=== PATIENT | female | born 1965 | race American Indian/Alaskan Native ===

== ENCOUNTER 2020-06-13 15:43 | Emergency (ER) | payer SELFPAY ==
[2020-06-13 16:11] VITALS: BP 134/98
--- NOTE | 2020-06-13 16:16 | Emergency Department Report ---
ED Lower Extremity HPI - General Chief Complaint: Extremity Problem,Nontraumatic Stated Complaint: LEFT KNEE PAIN AND SWOLLEN Time Seen by Provider: 06/13/20 16:11 Source: patient Mode of arrival: Ambulatory Limitations: No Limitations - History of Present Illness Initial Comments: This is a 54-year-old female nontoxic, well nourished in appearance, no acute signs of distress presents to the ED with c/o of left knee pain. Patient denies any known trauma or injuries. Denies decreased ROM, joint swelling, redness, or abnormal gait. Denies any fever, chills, nausea, vomiting, headache, stiff neck, chest pain or shortness of breath. Patient denies any numbness or tingling. Denies any allergies. MD Complaint: knee injury Injury: Knee: Left Severity: mild Severity scale (0 -10): 8 Improves With: immobilization Worsens With: weight bearing, movement, palpation Associated Symptoms: able to partially bear weight. denies: snap/pop sensation, swelling, numbness, tingling, unable to bear weight - Related Data Previous Rx's Medication Instructions Recorded Last Taken Type Albuterol Sulfate [Ventolin HFA] 2 puff IH Q4H PRN #1 hfa.aer.ad 01/06/15 Unknown Rx Naproxen [Naprosyn] 250 mg PO BID PRN #10 tablet 02/06/15 Unknown Rx Naproxen 500 mg PO Q12H PRN #12 tablet 06/13/20 Unknown Rx Allergies Allergy/AdvReac Type Severity Reaction Status Date / Time No Known Allergies Allergy Verified 01/06/15 06:44 ED Review of Systems ROS: Stated complaint: LEFT KNEE PAIN AND SWOLLEN Other details as noted in HPI Constitutional: denies: chills, fever Eyes: denies: eye pain, eye discharge, vision change ENT: denies: ear pain, throat pain Respiratory: denies: cough, shortness of breath, wheezing Cardiovascular: denies: chest pain, palpitations Endocrine: no symptoms reported Gastrointestinal: denies: abdominal pain, nausea, diarrhea Genitourinary: denies: urgency, dysuria, discharge Musculoskeletal: denies: back pain, joint swelling, arthralgia Skin: denies: rash, lesions Neurological: denies: headache, weakness, paresthesias Psychiatric: denies: anxiety, depression Hematological/Lymphatic: denies: easy bleeding, easy bruising ED Past Medical Hx - Past Medical History Previous Medical History?: Yes Hx Asthma: Yes - Surgical History Past Surgical History?: Yes Additional Surgical History: TUBAL LIGATION - Social History Smoking Status: Never Smoker - Medications Home Medications: Home Medications Medication Instructions Recorded Confirmed Last Taken Type Albuterol Sulfate [Ventolin HFA] 2 puff IH Q4H PRN #1 hfa.aer.ad 01/06/15 Unknown Rx Naproxen [Naprosyn] 250 mg PO BID PRN #10 tablet 02/06/15 Unknown Rx Naproxen 500 mg PO Q12H PRN #12 tablet 06/13/20 Unknown Rx ED Physical Exam - General Limitations: No Limitations General appearance: alert, in no apparent distress - Head Head exam: Present: atraumatic, normocephalic - Eye Eye exam: Present: normal appearance - Neck Neck exam: Present: normal inspection, full ROM. Absent: tenderness, meningismus, lymphadenopathy - Respiratory Respiratory exam: Absent: respiratory distress - Extremities Exam Extremities exam: Present: normal inspection, full ROM, tenderness, normal capillary refill. Absent: joint swelling, calf tenderness - Expanded Lower Extremity Exam Left Hip exam: Present: normal inspection, full ROM. Absent: tenderness, swelling Upper Leg exam: Present: normal inspection, full ROM. Absent: tenderness, swelling Knee exam: Present: full ROM, tenderness, full knee extension. Absent: swelling, abrasion, laceration, ecchymosis, deformity, crepidus, dislocation, erythema, effusion, pain w/ pronation/supination, posterior draw sign, pain/laxity with valgus, pain/laxity with varus Lower Leg exam: Present: normal inspection, full ROM. Absent: tenderness, swelling Ankle exam: Present: normal inspection, full ROM. Absent: tenderness, swelling Foot/Toe exam: Present: normal inspection, full ROM. Absent: tenderness, swelling Neuro vascular tendon exam: Present: no vascular compromise Gait: Positive: observed and limited by pain - Back Exam Back exam: Present: normal inspection, full ROM - Neurological Exam Neurological exam: Present: alert, oriented X3, normal gait - Psychiatric Psychiatric exam: Present: normal affect, normal mood - Skin Skin exam: Present: warm, dry, intact, normal color. Absent: rash ED Course Vital Signs 06/13/20 16:10 Temperature 98.0 F Pulse Rate 101 H Respiratory 16 Rate Blood Pressure 134/98 [Right] O2 Sat by Pulse 99 Oximetry - Reevaluation(s) Reevaluation #1: 06/13/20 16:15 Patient is speaking in full sentences with no signs of distress noted. ED Lower Extremity MDM - Medical Decision Making This is a 54-year-old female that presents with left knee strain. Patient is stable and was examined by me. Patient is notified of the xray results with no questions noted by the patient. No joint effusion, no redness, no decreased ROM. Normal gait. Patient was instructed to Follow-up with a orthopedic doctor in 3-5 days or if symptoms worsen and continue return to emergency room as soon as possible. At time of discharge, the patient does not seem toxic or ill in appearance. No acute signs of distress noted. Patient agrees to discharge treatment plan of care. No further questions noted by the patient. Critical care attestation.: If time is entered above; I have spent that time in minutes in the direct care of this critically ill patient, excluding procedure time. ED Disposition Clinical Impression: Strain of left knee Qualifiers: Encounter type: initial encounter Qualified Code(s): S86.912A - Strain of unspecified muscle(s) and tendon(s) at lower leg level, left leg, initial encounter Disposition: DC- TO HOME OR SELFCARE Is pt being admited?: No Does the pt Need Aspirin: No Condition: Stable Instructions: Knee Pain (ED), RICE Therapy (ED) Additional Instructions: Follow-up with a orthopedic doctor in 3-5 days or if symptoms worsen and continue return to the emergency department as soon as possible. No physical activity until cleared by orthopedic. Prescriptions: Naproxen 500 mg PO Q12H PRN #12 tablet PRN Reason: Pain , Severe (7-10) Referrals: PRIMARY CARE, [Referring] - 3-5 Days TRACY DOLL MD [Staff Physician] - 3-5 Days Forms: Work/School Release Form(ED)
--- NOTE | 2020-06-13 16:46 | XRay Report ---
LEFT KNEE 3 VIEWS INDICATION / CLINICAL INFORMATION: knee pain COMPARISON: None available. FINDINGS: BONES / JOINT(S): No acute fracture or subluxation. No significant arthritis. SOFT TISSUES: There is an effusion in the suprapatella bursa. ADDITIONAL FINDINGS: None. Signer Name: Kam Delgado MD Signed: 06/13/2020 4:42 PM Workstation Name: [id number]
== END 2020-06-13 18:16 | disposition home or self-care (01) ==
LOC: ED 15:43
DX: S86.912A Strain of unspecified muscle(s) and tendon(s) at lower leg level, left leg, initial encounter (principal); J45.909 Unspecified asthma, uncomplicated; Z98.51 Tubal ligation status; Z79.899 Other long term (current) drug therapy; X58.XXXA Exposure to other specified factors, initial encounter; Y93.89 Activity, other specified; Y92.89 Other specified places as the place of occurrence of the external cause; Y99.8 Other external cause status
CPT/HCPCS: 99283

== ENCOUNTER 2021-11-21 14:35 | Emergency (ER) | payer SELFPAY ==
[2021-11-21 16:58] VITALS: BP 175/97
[2021-11-21] MEDS ORDERED: CYCLOBENZAPRINE 10 MG TAB PO ONE (19:53)
[2021-11-21] MEDS ORDERED: predniSONE 20 MG TAB PO ONE (19:53)
[2021-11-21] MEDS ORDERED: ACETAMINOPHEN W/CODEINE 300-30 MG TAB PO ONE (19:53)
[2021-11-21] MEDS ORDERED: KETOROLAC 10 MG TAB PO ONE (19:53)
--- NOTE | 2021-11-21 19:57 | Emergency Department Report ---
ED Back Pain/Injury HPI - General Chief Complaint: Back Pain/Injury Stated Complaint: LOW BACK PAIN Time Seen by Provider: 11/21/21 19:04 Source: patient Limitations: No Limitations - History of Present Illness Initial Comments: 56 yo female with pmh of asthma presents to ed for evaluation of 2 day history of worsening lower back pain that radiates down her right leg. She denies injury, fever, urinary symptoms, saddle anesthesia, and abdominal pain. MD Complaint: back pain -: Gradual, days(s) (2) Similar Symptoms Previously: No Place: home Radiation: right leg Severity: severe Severity scale (0 -10): 10 Quality: burning, aching Consistency: constant Improves With: none Worsens With: movement Associated Symptoms: denies other symptoms. denies: weakness, chest pain, numbness, difficulty walking, difficulty urinating, diaphoresis, incontinence, fever/chills, abdominal pain, loss of appetite, malaise, nausea/vomiting, syncope Treatments Prior to Arrival: other ("Max Freeze" cream) - Related Data Previous Rx's Medication Instructions Recorded Last Taken Type Albuterol Sulfate [Ventolin HFA] 2 puff IH Q4H PRN #1 hfa.aer.ad 01/06/15 Unknown Rx Naproxen [Naprosyn] 250 mg PO BID PRN #10 tablet 02/06/15 Unknown Rx Naproxen 500 mg PO Q12H PRN #12 tablet 06/13/20 Unknown Rx Cyclobenzaprine [Flexeril] 10 mg PO TID PRN #21 tab 11/21/21 Unknown Rx Naproxen [Naprosyn] 500 mg PO BID #14 tab 11/21/21 Unknown Rx prednisoLONE [Millipred 5mg (6 day 5 mg PO QDAY #1 pack 11/21/21 Unknown Rx 21 tab dosepak)] Allergies Allergy/AdvReac Type Severity Reaction Status Date / Time No Known Allergies Allergy Verified 01/06/15 06:44 ED Review of Systems ROS: Stated complaint: LOW BACK PAIN Other details as noted in HPI Comment: All other systems reviewed and negative Constitutional: denies: chills, diaphoresis, fever, malaise, weakness Eyes: denies: eye pain ENT: denies: ear pain, throat pain, dental pain Respiratory: no symptoms reported Cardiovascular: denies: chest pain, palpitations, dyspnea on exertion, orthopnea, edema, syncope Endocrine: no symptoms reported Gastrointestinal: denies: abdominal pain, nausea, vomiting, diarrhea, constipation, hematemesis, melena, hematochezia Genitourinary: denies: urgency, dysuria, frequency, hematuria, discharge Musculoskeletal: back pain. denies: joint swelling, arthralgia, myalgia Skin: denies: rash, lesions Neurological: denies: headache, weakness, numbness, paresthesias, abnormal gait Psychiatric: denies: anxiety, depression Hematological/Lymphatic: denies: easy bleeding, easy bruising ED Past Medical Hx - Past Medical History Hx Asthma: Yes - Surgical History Additional Surgical History: TUBAL LIGATION - Social History Smoking Status: Never Smoker - Medications Home Medications: Home Medications Medication Instructions Recorded Confirmed Last Taken Type Albuterol Sulfate [Ventolin HFA] 2 puff IH Q4H PRN #1 hfa.aer.ad 01/06/15 Unknown Rx Naproxen [Naprosyn] 250 mg PO BID PRN #10 tablet 02/06/15 Unknown Rx Naproxen 500 mg PO Q12H PRN #12 tablet 06/13/20 Unknown Rx Cyclobenzaprine [Flexeril] 10 mg PO TID PRN #21 tab 11/21/21 Unknown Rx Naproxen [Naprosyn] 500 mg PO BID #14 tab 11/21/21 Unknown Rx prednisoLONE [Millipred 5mg (6 day 5 mg PO QDAY #1 pack 11/21/21 Unknown Rx 21 tab dosepak)] ED Physical Exam - General Limitations: No Limitations General appearance: alert, in no apparent distress - Head Head exam: Present: atraumatic, normocephalic - Eye Eye exam: Present: normal appearance. Absent: conjunctival injection - Neck Neck exam: Present: normal inspection, full ROM. Absent: tenderness - Respiratory Respiratory exam: Present: normal lung sounds bilaterally. Absent: respiratory distress, wheezes, rales, rhonchi, chest wall tenderness - Cardiovascular Cardiovascular Exam: Present: regular rate, normal heart sounds - GI/Abdominal GI/Abdominal exam: Present: soft, normal bowel sounds. Absent: distended, tenderness, guarding, rebound, rigid - Extremities Exam Extremities exam: Present: normal inspection. Absent: full ROM - Expanded Lower Extremity Exam Right Hip exam: Present: tenderness Upper Leg exam: Present: tenderness Neuro vascular tendon exam: Present: no vascular compromise. Absent: pulse deficit Gait: Positive: observed and limited by pain - Back Exam Back exam: Present: normal inspection, tenderness (right lower). Absent: CVA tenderness (R), CVA tenderness (L), paraspinal tenderness, vertebral tenderness - Neurological Exam Neurological exam: Present: alert, oriented X3 - Psychiatric Psychiatric exam: Present: normal affect, normal mood - Skin Skin exam: Present: warm, dry, intact, normal color ED Course Vital Signs 11/21/21 16:57 Pulse Rate 83 Respiratory 16 Rate Blood Pressure 175/97 [Left] O2 Sat by Pulse 97 Oximetry ED Medical Decision Making - Medical Decision Making 56 yo female with pmh of asthma presents to ed for evaluation of 2 day history of worsening lower back pain that radiates down her right leg. She denies injury, fever, urinary symptoms, saddle anesthesia, and abdominal pain. Exam consistent with lumbar radiculopathy with tenderness to right lower back but not reproducible by palpation. Patient describes pain as deep, intense, and feels like it deep inside. She will be treated with 6 day course of steroids along with anti-inflammatory and muscle relaxant. She was advised to take medications as prescribed and follow up with pcp or in ED if no improvement or worsening symptoms. She verbalized understanding of and agreement with plan of care. Critical care attestation.: If time is entered above; I have spent that time in minutes in the direct care of this critically ill patient, excluding procedure time. ED Disposition Clinical Impression: Low back pain radiating to left lower extremity Disposition: HOME / SELF CARE / HOMELESS Is pt being admited?: No Does the pt Need Aspirin: No Condition: Stable Instructions: Acute Back Pain, Adult, Sciatica Additional Instructions: Take medications as prescribed. Follow-up with primary care provider if no improvement or worsening symptoms. Prescriptions: Cyclobenzaprine [Flexeril] 10 mg PO TID PRN #21 tab PRN Reason: Muscle Spasm prednisoLONE [Millipred 5mg (6 day 21 tab dosepak)] 5 mg PO QDAY #1 pack Naproxen [Naprosyn] 500 mg PO BID #14 tab Referrals: MAILE IZQUIERDO MD [Staff Physician] - 3-5 Days Time of Disposition: 19:57
== END 2021-11-21 20:17 | disposition home or self-care (01) ==
LOC: ED 14:35
DX: M54.50 Low back pain, unspecified (principal); M79.605 Pain in left leg; J45.909 Unspecified asthma, uncomplicated; Z98.51 Tubal ligation status
CPT/HCPCS: 99282

== ENCOUNTER 2022-04-25 20:13 | Emergency (ER) | payer SELFPAY ==
--- NOTE | 2022-04-26 10:07 | Electrocardiograph Report ---
[facility] Test Date: 2022-04-25 Test Time: 20:29:33 Pat Name: REYNA JARA Department: Room: Gender: F Surgical Sales Representative: : 1965 Requested By: HUNG JIMENEZ Order Number: [id number] Reading MD: Jason Bocanegra Measurements Intervals [place] Rate: 86 P: 61 AR: 128 QRS: 22 QRSD: 71 T: -28 QT: 340 QTc: 408 Interpretive Statements Sinus rhythm Probable anteroseptal infarct, old Nonspecific T abnormalities, inferior leads No previous ECG available for comparison Electronically Signed On 04-26-2022 10:07:26 EDT by Jason Bocanegra
[2022-04-26] MEDS ORDERED: BENZONATATE 100 MG CAP PO ONE (11:53)
[2022-04-26] MEDS ORDERED: predniSONE 20 MG TAB PO ONE (11:53)
[2022-04-26] MEDS ORDERED: KETOROLAC 10 MG TAB PO ONE (11:53)
[2022-04-26] MEDS ORDERED: diphenhydrAMINE 25 MG CAP PO ONE (11:53)
[2022-04-26] MEDS ORDERED: ACETAMINOPHEN W/CODEINE 300-30 MG TAB PO ONE (11:53)
--- NOTE | 2022-04-26 11:58 | Emergency Department Report ---
ED ENT HPI - General Chief complaint: Upper Respiratory Infection Stated complaint: CHEST PAIN/COUGH/SORE THROAT Time Seen by Provider: 04/26/22 11:44 Source: patient Mode of arrival: Ambulatory Limitations: No Limitations - History of Present Illness Initial comments: 56-year-old black female with a past medical history of asthma and hypertension presents to the emergency department for evaluation of 4-day history of worsening cough, congestion, shortness of breath, and generalized fatigue. She denies fever, nausea, vomiting, and dizziness. She states that she has also had some decrease in appetite along with an intermittent sore throat and headache. MD complaint: sore throat, other (Cough, congestion, sore throat, headache, shortness of breath) -: Gradual, days(s) (4) Location: throat Severity: moderate Severity scale (0 -10): 8 Quality: aching Consistency: constant Worsens with: other (Cough) Associated Symptoms: cough, sore throat, rhinorrhea. denies: fever, gum swelling, toothache, pain with swallowing, tinnitus, hearing loss, discharge from ear - Related Data Previous Rx's Medication Instructions Recorded Last Taken Type Albuterol Sulfate [Ventolin HFA] 2 puff IH Q4H PRN #1 hfa.aer.ad 01/06/15 Unknown Rx Naproxen [Naprosyn] 250 mg PO BID PRN #10 tablet 02/06/15 Unknown Rx Naproxen 500 mg PO Q12H PRN #12 tablet 06/13/20 Unknown Rx Cyclobenzaprine [Flexeril] 10 mg PO TID PRN #21 tab 11/21/21 Unknown Rx Naproxen [Naprosyn] 500 mg PO BID #14 tab 11/21/21 Unknown Rx prednisoLONE [Millipred 5mg (6 day 5 mg PO QDAY #1 pack 11/21/21 Unknown Rx 21 tab dosepak)] Benzonatate [Tessalon Perles] 100 mg PO Q8HR PRN #30 cap 04/26/22 Unknown Rx Prednisone [predniSONE 10 mg 10 mg PO .TAPER #1 pack 04/26/22 Unknown Rx (6-Day Pack, 21 Tabs)] guaiFENesin/CODEINE [Robitussin AC] 10 ml PO TID PRN #120 ml 04/26/22 Unknown Rx Allergies Allergy/AdvReac Type Severity Reaction Status Date / Time No Known Allergies Allergy Verified 01/06/15 06:44 ED Dental HPI - General Chief complaint: Upper Respiratory Infection Stated complaint: CHEST PAIN/COUGH/SORE THROAT Time Seen by Provider: 04/26/22 11:44 Source: patient Mode of arrival: Ambulatory Limitations: No Limitations - Related Data Previous Rx's Medication Instructions Recorded Last Taken Type Albuterol Sulfate [Ventolin HFA] 2 puff IH Q4H PRN #1 hfa.aer.ad 01/06/15 Unknown Rx Naproxen [Naprosyn] 250 mg PO BID PRN #10 tablet 02/06/15 Unknown Rx Naproxen 500 mg PO Q12H PRN #12 tablet 06/13/20 Unknown Rx Cyclobenzaprine [Flexeril] 10 mg PO TID PRN #21 tab 11/21/21 Unknown Rx Naproxen [Naprosyn] 500 mg PO BID #14 tab 11/21/21 Unknown Rx prednisoLONE [Millipred 5mg (6 day 5 mg PO QDAY #1 pack 11/21/21 Unknown Rx 21 tab dosepak)] Benzonatate [Tessalon Perles] 100 mg PO Q8HR PRN #30 cap 04/26/22 Unknown Rx Prednisone [predniSONE 10 mg 10 mg PO .TAPER #1 pack 04/26/22 Unknown Rx (6-Day Pack, 21 Tabs)] guaiFENesin/CODEINE [Robitussin AC] 10 ml PO TID PRN #120 ml 04/26/22 Unknown Rx Allergies Allergy/AdvReac Type Severity Reaction Status Date / Time No Known Allergies Allergy Verified 01/06/15 06:44 ED Review of Systems ROS: Stated complaint: CHEST PAIN/COUGH/SORE THROAT Other details as noted in HPI Comment: All other systems reviewed and negative Constitutional: weakness. denies: chills, fever, malaise Eyes: denies: vision change ENT: throat pain, congestion Respiratory: cough, shortness of breath. denies: orthopnea, SOB with exertion, SOB at rest, stridor, wheezing Cardiovascular: chest pain (With coughing only). denies: palpitations, dyspnea on exertion, orthopnea, edema, syncope, paroxysmal nocturnal dyspnea Gastrointestinal: denies: abdominal pain, nausea, vomiting, diarrhea, hematemesis, melena, hematochezia Genitourinary: denies: urgency, dysuria, frequency, hematuria, discharge, abnormal menses Musculoskeletal: denies: back pain Skin: denies: rash, lesions Neurological: headache, weakness. denies: numbness, paresthesias, confusion, abnormal gait, vertigo ED Past Medical Hx - Past Medical History Previous Medical History?: Yes Hx Asthma: Yes - Surgical History Past Surgical History?: Yes Additional Surgical History: TUBAL LIGATION - Social History Smoking Status: Never Smoker Substance Use Type: None - Medications Home Medications: Home Medications Medication Instructions Recorded Confirmed Last Taken Type Albuterol Sulfate [Ventolin HFA] 2 puff IH Q4H PRN #1 hfa.aer.ad 01/06/15 Unknown Rx Naproxen [Naprosyn] 250 mg PO BID PRN #10 tablet 02/06/15 Unknown Rx Naproxen 500 mg PO Q12H PRN #12 tablet 06/13/20 Unknown Rx Cyclobenzaprine [Flexeril] 10 mg PO TID PRN #21 tab 11/21/21 Unknown Rx Naproxen [Naprosyn] 500 mg PO BID #14 tab 11/21/21 Unknown Rx prednisoLONE [Millipred 5mg (6 day 5 mg PO QDAY #1 pack 11/21/21 Unknown Rx 21 tab dosepak)] Benzonatate [Tessalon Perles] 100 mg PO Q8HR PRN #30 cap 04/26/22 Unknown Rx Prednisone [predniSONE 10 mg 10 mg PO .TAPER #1 pack 04/26/22 Unknown Rx (6-Day Pack, 21 Tabs)] guaiFENesin/CODEINE [Robitussin AC] 10 ml PO TID PRN #120 ml 04/26/22 Unknown Rx ED Physical Exam - General Limitations: No Limitations General appearance: alert, in no apparent distress - Head Head exam: Present: atraumatic, normocephalic - Eye Eye exam: Present: normal appearance. Absent: scleral icterus, conjunctival injection, periorbital swelling, periorbital tenderness - ENT ENT exam: Absent: normal exam (Bilateral nasal mucosal edema), normal orophraynx (Erythema noted to posterior oropharynx) - Neck Neck exam: Present: normal inspection, full ROM. Absent: tenderness, lymphadenopathy - Respiratory Respiratory exam: Present: normal lung sounds bilaterally, chest wall tenderness. Absent: respiratory distress, wheezes, rales, rhonchi, stridor - Cardiovascular Cardiovascular Exam: Present: regular rate, normal heart sounds - GI/Abdominal GI/Abdominal exam: Present: soft, normal bowel sounds. Absent: distended, tenderness, guarding, rebound, rigid - Extremities Exam Extremities exam: Present: normal inspection, normal capillary refill. Absent: pedal edema, joint swelling, calf tenderness - Back Exam Back exam: Present: normal inspection. Absent: CVA tenderness (R), CVA tenderness (L) - Neurological Exam Neurological exam: Present: alert, oriented X3, normal gait - Psychiatric Psychiatric exam: Present: normal affect, normal mood - Skin Skin exam: Present: warm, dry, intact, normal color ED Course Vital Signs 04/25/22 21:44 Temperature 98.5 F Pulse Rate 95 H Respiratory 20 Rate Blood Pressure 118/77 O2 Sat by Pulse 97 Oximetry ED Medical Decision Making - EKG Data Interpretation: no acute changes - Radiology Data Radiology results: report reviewed, image reviewed Chest x-ray: FINDINGS: SUPPORT DEVICES: None. HEART / MEDIASTINUM: No significant abnormality. LUNGS / PLEURA: No significant pulmonary or pleural abnormality. No pneumothorax. ADDITIONAL FINDINGS: No significant additional findings. IMPRESSION: 1. No acute findings. - Medical Decision Making 56-year-old black female with a past medical history of asthma and hypertension presents to the emergency department for evaluation of 4-day history of worsening cough, congestion, shortness of breath, and generalized fatigue. She denies fever, nausea, vomiting, and dizziness. She states that she has also had some decrease in appetite along with an intermittent sore throat and headache Chest x-ray without any acute abnormalities noted. EKG without any acute ischemic changes noted. Patient be discharged home with steroid Dosepak med ication for cough. She is advised to take medications as prescribed, follow-up with a primary care provider if no improvement or worsening symptoms, or return to the emergency department for any concerning symptoms. She verbalizes understanding of and agreement with plan of care. Critical care attestation.: If time is entered above; I have spent that time in minutes in the direct care of this critically ill patient, excluding procedure time. ED Disposition Clinical Impression: URI with cough and congestion Disposition: HOME / SELF CARE / HOMELESS Is pt being admited?: No Does the pt Need Aspirin: No Condition: Stable Instructions: Upper Respiratory Infection, Adult, [id number] Additional Instructions: Take medications as prescribed. Follow-up with your primary care provider if no improvement or worsening symptoms. Return to the emergency department as needed. Prescriptions: Prednisone [predniSONE 10 mg (6-Day Pack, 21 Tabs)] 10 mg PO .TAPER #1 pack guaiFENesin/CODEINE [Robitussin AC] 10 ml PO TID PRN #120 ml PRN Reason: Cough Benzonatate [Tessalon Perles] 100 mg PO Q8HR PRN #30 cap PRN Reason: Cough Referrals: PRIMARY CARE, [Primary Care Provider] - 3-5 Days Forms: Work/School Release Form(ED) Time of Disposition: 12:44
--- NOTE | 2022-04-26 12:36 | XRay Report ---
CHEST 2 VIEWS INDICATION / CLINICAL INFORMATION: sob, cough, congestion. COMPARISON: None available. FINDINGS: SUPPORT DEVICES: None. HEART / MEDIASTINUM: No significant abnormality. LUNGS / PLEURA: No significant pulmonary or pleural abnormality. No pneumothorax. ADDITIONAL FINDINGS: No significant additional findings. IMPRESSION: 1. No acute findings. Signer Name: Augusto Jaquez MD Signed: 04/26/2022 12:31 PM Workstation Name: [id number]
[2022-04-26 13:45] VITALS: BP 138/87
== END 2022-04-26 13:45 | disposition home or self-care (01) ==
LOC: ED 20:13
DX: J06.9 Acute upper respiratory infection, unspecified (principal); R05.9 Cough, unspecified; R09.81 Nasal congestion; J45.909 Unspecified asthma, uncomplicated; Z79.899 Other long term (current) drug therapy
CPT/HCPCS: 71046; 93005; 99283